=== PATIENT | female | born 1995 | race Hispanic/Latino ===

== ENCOUNTER 2017-06-07 06:00 | Day surgery (SDC) | payer MEDICAID ==
--- NOTE | 2017-06-07 06:50 | Anesthesia Consultation ---
Anesthesia Consult and Med Hx Date of service: 06/07/17 - Airway Anesthetic Teeth Evaluation: Good ROM Head & Neck: Adequate Mental/Hyoid Distance: Adequate Mallampati Class: Class II Intubation Access Assessment: Probably Good - Pulmonary Exam CTA: Yes - Cardiac Exam Cardiac Exam: RRR - Pre-Operative Health Status ASA Pre-Surgery Classification: ASA2 Proposed Anesthetic Plan: General - Pulmonary Hx Smoking: No Hx Sleep Apnea: No - Central Nervous System Hx Psychiatric Problems: No - Gastrointestinal Hx Gastroesophageal Reflux Disease: No - Other Systems Hx Cancer: No
--- NOTE | 2017-06-07 06:51 | Anesthesia Day of Surgery ---
Anesthesia Day of Surgery - Day of Surgery Patient Examined: Yes Patient H&P Reviewed: Yes Patient is NPO: Yes
[2017-06-07] MEDS ORDERED: ZOFRAN IV PRN (06:52)
[2017-06-07] MEDS ORDERED: NACL BACTERIOSTATIC INFILTRATI ONE (06:53)
[2017-06-07] MEDS ORDERED: VERSED IV NR (07:00)
[2017-06-07] MEDS ORDERED: LACTATED RINGERS 1,000 ML IV SCH (07:00)
[2017-06-07] MEDS ORDERED: PEPCID IV NR (07:00)
[2017-06-07] MEDS ORDERED: XYLOCAINE 1%/ EPI 1:100,000 INFILTRATI ONE (07:16)
[2017-06-07] MEDS ORDERED: MARCAINE 0.5% 0 ML INFILTRATI ONE (07:16)
[2017-06-07] MEDS ORDERED: DIPRIVAN 10 MG/ML IV ONE (07:16)
[2017-06-07] MEDS ORDERED: XYLOCAINE MPF 2% ONE (07:17)
[2017-06-07] MEDS ORDERED: DILAUDID ONE (07:18)
[2017-06-07] MEDS ORDERED: ANCEF/STERILE WATER 2 GM/20 ML IV NR (07:28)
[2017-06-07 07:36] LABS: Hemoglobin 12.7 gm/dl (10.1-14.3); Mean Corpuscular HGB Conc 34 % (30-34); Mean Corpuscular Hemoglobin 30 pg (28-32); Mean Corpuscular Volume 86 fl (79-97); Platelet Count 280 K/mm3 (140-440); Red Blood Count 4.31 M/mm3 (3.65-5.03); Red Cell Distribution Width 14.6 % (13.2-15.2); White Blood Count 5.4 K/mm3 (4.5-11.0)
--- NOTE | 2017-06-07 08:00 | Discharge Summary ---
Short Stay Discharge Plan Activity: no restrictions Weight Bearing Status: Full Weight Bearing Diet: regular Wound: other (wound Vac Changes 3x/week) Additional Instructions: ACTIVITY - NO RESTRICTIONS WEIGHT BEARING - FULL WEIGHT BEARING DIET - REGULAR WOUND - (WOUND VAC CHANGES 3X/WEEK) Follow up with: MANJULA HOWARD JR, MD [Staff Physician] - 7 Days DIAMOND COVARRUBIAS MD [Primary Care Provider] - 6 Weeks Forms: Outpatient [facility] Inst.
--- NOTE | 2017-06-07 08:02 | Short Stay Summary ---
Short Stay Documentation Date of service: 06/07/17 - Allergies and Medications Current Medications: Allergies acetaminophen [From Theraflu Day-Night Cold &Cough] Adverse Reaction (Verified 06/03/17 10:05) Nose Bleeding and dizziness dextromethorphan HBr [From Theraflu Day-Night Cold &Cough] Adverse Reaction ( Verified 06/03/17 10:05) Nose Bleeding and dizziness diphenhydramine [From Theraflu Day-Night Cold &Cough] Adverse Reaction ( Verified 06/03/17 10:05) Nose Bleeding and dizziness phenylephrine HCl [From Theraflu Day-Night Cold &Cough] Adverse Reaction ( Verified 06/03/17 10:05) Nose Bleeding and dizziness Home Medications Medication Instructions Recorded Confirmed Last Taken Type Ciprofloxacin HCl [Ciprofloxacin 500 mg PO BID 06/03/17 06/07/17 05/31/17 History TAB] Norgestimate-Ethinyl Estradiol 1 each PO QDAY 06/03/17 06/07/17 06/06/17 History [Sprintec 28 Day Tablet] Active Medications Cefazolin Sodium (Ancef/Sterile Water 2 Gm/20 Ml) 2 gm IV PREOP NR Stop: 06/07/17 23:59 Famotidine (Pepcid) 20 mg IV PREOP NR Stop: 06/07/17 23:54 Last Admin: 06/07/17 07:21 Dose: 20 mg Hydromorphone HCl (Dilaudid) 0.5 mg IV Q10MIN PRN PRN Reason: Pain , Severe (7-10) Stop: 06/10/17 06:53 Lactated Ringer's (Lactated Ringers) 1,000 mls @ 100 mls/hr IV DIRECT DINESH Last Admin: 06/07/17 07:22 Dose: 100 mls/hr Midazolam HCl (Versed) 2 mg IV PREOP NR Stop: 06/07/17 23:59 Last Admin: 06/07/17 07:22 Dose: 2 mg - Brief post op/procedure progress note Date of procedure: 06/07/17 Pre-op diagnosis: Hidradenitis RT Axilla Post-op diagnosis: same Procedure: Radical Excision of Skin from RT Axilla Wound Vac Application Anesthesia: GETA Surgeon: MANJULA HOWARD JR Estimated blood loss: minimal Specimen disposition: to lab Condition: stable - Disposition Condition at discharge: Stable Disposition: DC-01 TO HOME OR SELFCARE Short Stay Discharge Plan Follow up with: DIAMOND COVARRUBIAS MD [Primary Care Provider] - 7 Days
[2017-06-07] MEDS ORDERED: NACL 0.9% IR ONE (08:36)
[2017-06-07] MEDS: DILAUDID IV PRN ×2 (08:40→09:17)
[2017-06-07] MEDS ORDERED: ZOFRAN ONE (09:46)
[2017-06-07 12:06] VITALS: BP 146/88
--- NOTE | 2017-06-07 16:33 | Operative Report ---
Operative Report Operative Report: 06/07/17 Preoperative diagnosis: Hidradenitis Suppurativa Postoperative diagnosis: Same Procedure: Radical excision of skin from right axilla Application of wound VAC to right axilla greater than 50 cm Surgeon: Mario Goodwin M.D. Description of procedure: The patient was brought into the operating room and placed on the operating table in a supine position. The right axilla was prepped with a Betadine solution and draped in the usual sterile manner. A #10 blade scalpel was used to circumferentially excise the hairbearing skin area involved with hidradenitis separate to the measuring greater than 250 cm. Electrocautery was used to excise the skin which was sent to pathology as specimen while also maintaining hemostasis. Wound VAC sponge was applied in the standard manner. Patient tolerated the procedure well and returned recovery room in stable condition. Mario Goodwin M.D.
== END 2017-06-07 11:14 | disposition home or self-care (01) ==
LOC: OR 06:00
PROVIDERS: ATTEND Plastic Surgery
DX: L73.2 Hidradenitis suppurativa (principal); L98.499 Non-pressure chronic ulcer of skin of other sites with unspecified severity; Z88.8 Allergy status to other drugs, medicaments and biological substances; Z98.890 Other specified postprocedural states; Z82.61 Family history of arthritis; Z83.3 Family history of diabetes mellitus; Z82.49 Family history of ischemic heart disease and other diseases of the circulatory system
CPT/HCPCS: 11450; 36415; 81025; 85027; 88305; J1170; J2250; J2405; J2704; J7120

== ENCOUNTER 2017-07-05 06:05 | Day surgery (SDC) | payer MEDICAID, OTHER ==
[~2017-07-05 06:05] MED LIST: ANCEF/STERILE WATER 2 GM/20 ML IV NR
[2017-07-05] MEDS ORDERED: LACTATED RINGERS 1,000 ML IV SCH (07:00)
[2017-07-05] MEDS ORDERED: PEPCID PO NR (07:00)
[2017-07-05] MEDS ORDERED: VERSED IV NR (07:00)
--- NOTE | 2017-07-05 07:14 | Anesthesia Consultation ---
Anesthesia Consult and Med Hx Date of service: 07/05/17 - Airway Anesthetic Teeth Evaluation: Good ROM Head & Neck: Adequate Mental/Hyoid Distance: Adequate Mallampati Class: Class II Intubation Access Assessment: Probably Good - Pulmonary Exam CTA: Yes - Cardiac Exam Cardiac Exam: RRR - Pre-Operative Health Status ASA Pre-Surgery Classification: ASA3 Proposed Anesthetic Plan: General - Pulmonary Hx Smoking: No Hx Sleep Apnea: No (TOD PRE SCREEN LOW RISK) - Central Nervous System Hx Psychiatric Problems: No - Gastrointestinal Hx Gastroesophageal Reflux Disease: No - Other Systems Hx Cancer: No Hx Obesity: Yes - Additional Comments Anesthesia Medical History Comments: NAC previously. Essentialy healthy except for BMI.
--- NOTE | 2017-07-05 07:16 | Anesthesia Day of Surgery ---
Anesthesia Day of Surgery - Day of Surgery Patient Examined: Yes Patient H&P Reviewed: Yes Patient is NPO: Yes
[2017-07-05] MEDS ORDERED: DILAUDID ONE (07:24)
[2017-07-05] MEDS ORDERED: XYLOCAINE MPF 2% ONE (07:24)
[2017-07-05] MEDS ORDERED: DIPRIVAN 10 MG/ML IV ONE (07:24)
[2017-07-05] MEDS ORDERED: DECADRON ONE (07:24)
[2017-07-05] MEDS ORDERED: ZOFRAN ONE (07:24)
[2017-07-05] MEDS ORDERED: NACL BACTERIOSTATIC INFILTRATI ONE (07:37)
[2017-07-05] MEDS ORDERED: NACL 0.9% 1000 ML 1,000 ML IV SCH (08:00)
[2017-07-05 08:02] LABS: Hematocrit 38.1 % (30.3-42.9); Hemoglobin 12.7 gm/dl (10.1-14.3)
[2017-07-05] MEDS ORDERED: DILAUDID IV PRN (09:30)
[2017-07-05] MEDS ORDERED: ZOFRAN IV PRN (09:30)
--- NOTE | 2017-07-05 09:41 | Post Anesthesia Evaluation ---
- Post Anesthesia Evaluation Patient Participated: Yes Airway Patent: Yes Stable Respiratory Function: Yes Nausea/Vomiting: No Temp > 96.8F: Yes Pain Manageable: Yes Adequeate Hydration: Yes Anesthesia Complications: No Block Receding Appropriately: Not Applicable Patient on Ventilator: No
[2017-07-05] MEDS ORDERED: NORCO 10/325 PO PRN (11:15)
--- NOTE | 2017-07-05 11:16 | Operative Report ---
SERVICE: Plastic Surgery. PREOPERATIVE DIAGNOSES: 1. Open wound, right axilla. 2. Hidradenitis suppurativa. POSTOPERATIVE DIAGNOSES: 1. Open wound, right axilla. 2. Hidradenitis suppurativa. PROCEDURE: 1. Tangential excisional prep of right axillary wound, 140 square cm. 2. Split thickness skin graft from right thigh to right axilla, 140 square cm. 3. Application of wound VAC to right axilla, 140 square cm. SURGEON: Mario Goodwin MD DESCRIPTION OF PROCEDURE: The patient was brought to the operating room and placed on the table in supine position. Following administration of general anesthesia, the right axilla was prepped with Betadine solution, draped in usual sterile manner. A #10 blade scalpel was used to tangentially excise the wound down to healthy bleeding tissue to include removal of embedded wound VAC sponge. Hemostasis controlled using electrocautery. Marva Brown dermatome was used to harvest split thickness skin graft from the right thigh measuring of an inch, meshed one and half to one, secured in place over the recipient site using cyrus, covered by Xeroform gauze and application of a wound VAC in standard manner. The donor site was covered by Xeroform gauze and ABD pad. The patient tolerated the procedure well and returned to recovery room in stable condition. JOB# [id number] FTW/NTS
[2017-07-05] MEDS ORDERED: NORCO 5/325 PO PRN (11:18)
[2017-07-05 18:17] VITALS: BP 117/68
== END 2017-07-05 12:35 | disposition home or self-care (01) ==
LOC: OR 06:05
PROVIDERS: ATTEND Plastic Surgery
DX: L73.2 Hidradenitis suppurativa (principal); E66.9 Obesity, unspecified; Z68.41 Body mass index [BMI] 40.0-44.9, adult; Z82.61 Family history of arthritis; Z83.3 Family history of diabetes mellitus; Z82.49 Family history of ischemic heart disease and other diseases of the circulatory system
CPT/HCPCS: 15002; 15100; 15101; 36415; 81025; 85014; 85018; J0690; J1100; J1170; J2250; J2405; J2704; J7120

== ENCOUNTER 2019-12-24 23:23 | Emergency (ER) | payer MEDICAID ==
[2019-12-25 02:15] LABS: Basophils # (Auto) 0.1 K/mm3 (0.0-0.1); Basophils % (Auto) 0.9 % (0.0-1.8); Eosinophils # (Auto) 0.1 K/mm3 (0.0-0.4); Eosinophils % (Auto) 1.1 % (0.0-4.3); Hematocrit 38.7 % (30.3-42.9); Hemoglobin 13.5 gm/dl (10.1-14.3); Lymphocytes # (Auto) 3.1 K/mm3 (1.2-5.4); Lymphocytes % (Auto) 34.8 % (13.4-35.0); Mean Corpuscular HGB Conc 35 % (30-34); Mean Corpuscular Volume 89 fl (79-97); Monocytes # (Auto) 1.3 K/mm3 (0.0-0.8); Monocytes % (Auto) 14.3 % (0.0-7.3); Platelet Count 339 K/mm3 (140-440); Red Blood Count 4.36 M/mm3 (3.65-5.03); Red Cell Distribution Width 14.3 % (13.2-15.2)
[2019-12-25 02:41] LABS: Bilirubin,Urine NEG (Negative); Blood,Urine MOD (Negative); Color,Urine Yellow (Yellow); Mucus,Urine FEW /HPF; Protein,Urine <15 mg/dL mg/dL (Negative); Urobilinogen,Urine < 2.0 mg/dL (<2.0)
--- NOTE | 2019-12-25 03:18 | Ultrasound Report ---
OB Ultrasound HISTORY: Vaginal bleeding. TECHNIQUE: Grayscale and color Doppler imaging performed. COMPARISON: None FINDINGS: Transabdominal and endovaginal imaging was performed. Uterus measures 6.9 x 4.2 x 5.5 cm with endometrial echocomplex measuring 1.6 cm. There is a cystic s tructure within the uterine fundus with mean diameter of 6 mm corresponding with an EGA of 5 weeks an d 2 days. No pole or yolk sac is identified. Tiny adjacent hypoechoic density could represent a n implantation bleed. The ovaries are both normal in size with a cyst in the right ovary measuring 2 cm which is most likely functional. No pelvic free fluid. IMPRESSION: 1. Cystic structure in the uterine fundus could represent an early gestational sac although no pole or yolk sac is identified. Questionable small associated implantation bleed noted as above. Daljit mmend correlation with beta hCG and follow-up as needed. 2. Likely functional cyst in the right ovary. Signer Name: Ming Camp MD Signed: 12/25/2019 3:14 AM Workstation Name: [id number]
[2019-12-25 06:28] VITALS: BP 114/69
--- NOTE | 2019-12-25 08:11 | Emergency Department Report ---
ED HPI - General Chief complaint: Vaginal Bleeding Stated complaint: VAGINAL BLEEDING Time Seen by Provider: 12/25/19 07:24 Source: patient, EMS Mode of arrival: Ambulatory Limitations: No Limitations - History of Present Illness Initial comments: This is a 24-year-old female nontoxic, well nourished in appearance, no acute signs of distress presents to the ED with c/o of vaginal bleeding and some pelvic cramping x1 day. Patient stated is about 6 weeks . Patient denies any abdominal pain. Patient denies any vaginal discharge or foul odor. Patient denies any nausea, vomiting, chest pain, shortness of breathe, fever, chills, headache, stiff neck, numbness, tingling. Patient denies any urinary symptoms. MD Complaint: vaginal bleeding, other (pelvic pain) -: days(s) (1) Location: pelvis Radiation: none Severity: mild Severity scale (0 -10): 3 Quality: cramping, aching Consistency: constant Improves with: none Worsens with: none Associated symptoms: vaginal bleeding. denies: nausea/vomiting, vaginal discharge, abdominal pain, dysuria, headache, vision changes, malaise, dysparuenia, rash, seizure, shortness of breath, syncope, weakness Vaginal bleeding: light :: Yes Number of weeks : 6 Pre-andrea care: none - Related Data Home Medications Medication Instructions Recorded Confirmed Last Taken Norgestimate-Ethinyl Estradiol 1 each PO QDAY 06/03/17 07/05/17 07/04/17 [Sprintec 28 Day Tablet] Previous Rx's Medication Instructions Recorded Last Taken Type 21/Iron Fu/Folic Acid 1 each PO DAILY #30 tablet 12/25/19 Unknown Rx [ Complete Caplet] Allergies Allergy/AdvReac Type Severity Reaction Status Date / Time acetaminophen AdvReac Nose Verified 06/03/17 10:05 [From Theraflu Day-Night Bleeding Cold &Cough] and dizziness dextromethorphan HBr AdvReac Nose Verified 06/03/17 10:05 [From Theraflu Day-Night Bleeding Cold &Cough] and dizziness diphenhydramine AdvReac Nose Verified 06/03/17 10:05 [From Theraflu Day-Night Bleeding Cold &Cough] and dizziness phenylephrine HCl AdvReac Nose Verified 06/03/17 10:05 [From Theraflu Day-Night Bleeding Cold &Cough] and dizziness ED Review of Systems ROS: Stated complaint: VAGINAL BLEEDING Other details as noted in HPI Constitutional: denies: chills, fever Eyes: denies: eye pain, eye discharge, vision change ENT: denies: ear pain, throat pain Respiratory: denies: cough, shortness of breath, wheezing Cardiovascular: denies: chest pain, palpitations Endocrine: no symptoms reported Gastrointestinal: denies: abdominal pain, nausea, diarrhea Genitourinary: abnormal menses. denies: urgency, dysuria, discharge Musculoskeletal: denies: back pain, joint swelling, arthralgia Skin: denies: rash, lesions Neurological: denies: headache, weakness, paresthesias Psychiatric: denies: anxiety, depression Hematological/Lymphatic: denies: easy bleeding, easy bruising ED Past Medical Hx - Past Medical History Previous Medical History?: Yes Hx Headaches / Migraines: Yes (MIGRAINES) Hx HIV: No Additional medical history: Boils - Surgical History Past Surgical History?: Yes Additional Surgical History: Boils removed and a skin graft - Social History Smoking Status: Never Smoker - Medications Home Medications: Home Medications Medication Instructions Recorded Confirmed Last Taken Type Norgestimate-Ethinyl Estradiol 1 each PO QDAY 06/03/17 07/05/17 07/04/17 History [Sprintec 28 Day Tablet] 21/Iron Fu/Folic Acid 1 each PO DAILY #30 tablet 12/25/19 Unknown Rx [ Complete Caplet] ED Physical Exam - General Limitations: No Limitations General appearance: alert, in no apparent distress - Head Head exam: Present: atraumatic, normocephalic - Neck Neck exam: Present: normal inspection, full ROM. Absent: tenderness, meningismus, lymphadenopathy - Respiratory Respiratory exam: Present: normal lung sounds bilaterally. Absent: respiratory distress, wheezes, rales, rhonchi, stridor, chest wall tenderness, accessory muscle use, decreased breath sounds, prolonged expiratory - Cardiovascular Cardiovascular Exam: Present: regular rate, normal rhythm, normal heart sounds. Absent: bradycardia, tachycardia, irregular rhythm, systolic murmur, diastolic murmur, rubs, gallop - Extremities Exam Extremities exam: Present: normal inspection, full ROM - Back Exam Back exam: Present: normal inspection, full ROM. Absent: tenderness, CVA tenderness (R), CVA tenderness (L), muscle spasm, paraspinal tenderness, vertebral tenderness, rash noted - Neurological Exam Neurological exam: Present: alert, oriented X3, normal gait - Psychiatric Psychiatric exam: Present: normal affect, normal mood - Skin Skin exam: Present: warm, dry, intact, normal color. Absent: rash ED Course Vital Signs 12/25/19 12/25/19 00:47 06:27 Temperature 99.2 F 98.3 F Pulse Rate 85 78 Respiratory 18 16 Rate Blood Pressure 122/76 Blood Pressure 114/69 [Right] O2 Sat by Pulse 100 100 Oximetry - Reevaluation(s) Reevaluation #1: 12/25/19 08:17 Patient is speaking in full sentences with no signs of distress noted. ED Medical Decision Making - Lab Data Result diagrams: 12/25/19 02:01 - Medical Decision Making This is a 24-year-old female presents with threatened miscarriage. Patient is stable and was examined by me. Normal abdominal exam. US OB obtained and dictated by the radiologist. Ua obtained. Quantative serum test obtained. Patient notified of the US report with no questions noted by the patient. Patient was instructed f/u with [employer] in 2 days. RH factor positive. Labs within normal limits. Patient was given strict precautions and education on ectopic . At time of discharge, the patient does not seem toxic or ill in appearance. No acute signs of distress noted. Patient agrees to discharge treatment plan of care. No further questions noted by the patient. Critical care attestation.: If time is entered above; I have spent that time in minutes in the direct care of this critically ill patient, excluding procedure time. ED Disposition Clinical Impression: Threatened miscarriage Disposition: DC-01 TO HOME OR SELFCARE Is pt being admited?: No Does the pt Need Aspirin: No Condition: Stable Instructions: Threatened Miscarriage (ED) Additional Instructions: Follow-up with a [employer] in 2 days or if symptoms worsen and continue return to emergency room as soon as possible. Prescriptions: 21/Iron Fu/Folic Acid [ Complete Caplet] 1 each PO DAILY #30 tablet Referrals: PRIMARY MD JEANCARLOS [Primary Care Provider] - 3-5 Days MILDRED NUNEZ MD [Staff Physician] - 3-5 Days [facility] [Outside] - 3-5 Days Forms: Work/School Release Form(ED)
== END 2019-12-25 08:33 | disposition home or self-care (01) ==
LOC: ED 23:23
DX: O20.0 Threatened abortion (principal); G43.909 Migraine, unspecified, not intractable, without status migrainosus; Z98.890 Other specified postprocedural states; Z79.899 Other long term (current) drug therapy; Z88.8 Allergy status to other drugs, medicaments and biological substances; Z3A.01 Less than 8 weeks gestation of pregnancy
CPT/HCPCS: 36415; 76801; 76817; 81001; 84702; 85025; 86900; 86901